=== PATIENT | male | born 1945 | race Caucasian/White ===

== ENCOUNTER 2018-08-25 15:46 | Emergency (ER) | payer OTHER, MEDICARE ==
[~2018-08-25] VITALS: Ht 188 cm; Wt 104.5 kg
[2018-08-25 16:22] LABS: BASO % 0.4 % (0.0-1.0); EOS # 0.1 10^3/uL (0.0-0.50); EOS % 1.1 % (0.0-3.0); HEMATOCRIT 31.7 % (42.0-52.0); HEMOGLOBIN 10.2 g/dl (13.5-17.5); LYMPH # 1.1 10^3/uL (1.5-4.5); LYMPH % 11.3 % (24.0-44.0); MEAN CORPUSCULAR HEMOGLOBIN 29.2 pg (27.0-33.0); MEAN CORPUSCULAR HGB CONC 32.2 g/dl (32.0-36.5); MEAN CORPUSCULAR VOLUME 90.8 fl (80.0-96.0); MONO # 0.7 10^3/uL (0.0-0.8); MONO % 6.9 % (0.0-5.0); NEUTROPHILS # 7.6 10^3/uL (1.8-7.7); NEUTROPHILS % 79.3 % (36.0-66.0); PLATELET COUNT, AUTOMATED 238 10^3/uL (150-450); RED BLOOD COUNT 3.49 10^6/uL (4.30-6.10); WHITE BLOOD COUNT 9.6 10^3/uL (4.0-10.0)
[2018-08-25 16:32] LABS: INR 1.03; PROTHROMBIN TIME 13.2 SECONDS (11.8-14.0)
[2018-08-25 16:33] LABS: PARTIAL THROMBOPLASTIN TIME 28.1 SECONDS (25.0-38.4)
[2018-08-25 16:54] LABS: ALBUMIN 3.7 GM/DL (3.2-5.2); ALT/SGPT 28 U/L (12-78); BILIRUBIN,DIRECT 0.1 MG/DL (0.0-0.2); BILIRUBIN,TOTAL 0.3 MG/DL (0.2-1.0); BLOOD UREA NITROGEN 76 MG/DL (7-18); CALCIUM LEVEL 8.8 MG/DL (8.8-10.2); CARBON DIOXIDE LEVEL 15 MEQ/L (21-32); CHLORIDE LEVEL 112 MEQ/L (98-107); CPK CREATINE PHOSPHOKINASE 144 U/L (39-308); CREATININE FOR GFR 2.97 MG/DL (0.70-1.30); GLOMERULAR FILTRATION RATE 22.1 (>42); GLUCOSE, FASTING 144 MG/DL (70-100); LIPASE 1556 U/L (73-393); MB/CK RELATIVE INDEX 3.47 (< OR =4); POTASSIUM SERUM 5.8 MEQ/L (3.5-5.1); SODIUM LEVEL 137 MEQ/L (136-145); TOTAL PROTEIN 7.3 GM/DL (6.4-8.2); TROPONIN I < 0.02 NG/ML (< 0.10)
[2018-08-25] MEDS ORDERED: NS 1,000 ML IV ONE (17:15)
[2018-08-25] MEDS ORDERED: PATIROMER SORBITEX CALCIUM 8.4 GM POWDER PACKET (VELTASSA) PO ONE (17:30)
[2018-08-25] MEDS ORDERED: CALCIUM GLUCONATE 1,000 MG in D5W MINI-BAG PLUS 100 ML IV ONE (17:30)
--- NOTE | 2018-08-25 17:53 | REP ---
HISTORY: Acute renal failure and possible pancreatitis. COMPARISON: None. The examination was performed without intravenous or oral bowel preparatory contrast. This limits the exam. In the left kidney inferior pole region, there is a large calculus which is not causing obstructive phenomenon. This measures approximately 1.3 cm. There are no ureteroliths. There is no hydronephrosis or hydroureter. There are multiple bilateral renal cysts, some somewhat hyperdense. Limited evaluation of the pancreas and adrenal glands show no abnormalities. The liver, gallbladder, and spleen are within normal limits. There is no free fluid or free air in the abdomen. The abdominal aorta and periaortic regions are within normal limits. There is calcific atherosclerotic change. The bowel loops and their mesenteries are within normal limits. There has been previous partial colectomy. There is no intraabdominal mass or adenopathy. CT PELVIS: There is a large amount of content in the rectosigmoid vault. There is no free fluid or free air. There is no mass or adenopathy. Bone window technique throughout the exam shows the osseous structures to be within normal limits for the patient's age of 73 years. The lung bases are clear. IMPRESSION: 1. There is a nonobstructing left renal calculus. 2. Multiple bilateral renal cysts, but difficult to completely evaluate without intravenous contrast. Consider followup. 3. No evidence of acute intraabdominal or intrapelvic disease with other findings as described above. Electronically Signed by Dayton Mitchell DO 08/25/2018 05:54 P
[2018-08-25] MEDS ORDERED: PIOG1TAB37 PO (18:23)
[2018-08-25] MEDS ORDERED: ASPI81TA85 PO (18:23)
[2018-08-25] MEDS ORDERED: GLYB5TA PO (18:23)
[2018-08-25] MEDS ORDERED: VITMTA PO (18:23)
[2018-08-25] MEDS ORDERED: FISH1000 PO (18:23)
[2018-08-25] MEDS ORDERED: AMLO10TA5 PO (18:23)
[2018-08-25] MEDS ORDERED: LISI40TA PO (18:23)
[2018-08-25] MEDS ORDERED: SIMV40TA2 PO (18:23)
[2018-08-25] MEDS ORDERED: METF500T4 PO (18:23)
[2018-08-25] MEDS ORDERED: VITAD1000T PO (18:23)
[2018-08-25 19:04] LABS: APPEARANCE, URINE HAZY (CLEAR); BACTERIA, URINE AUTO 1+ (NEGATIVE); BILIRUBIN, URINE AUTO NEGATIVE (NEGATIVE); BLOOD, URINE BLOOD NEGATIVE (NEGATIVE); COLOR, URINE YELLOW (YELLOW); GLUCOSE, URINE (UA) AUTO NEGATIVE (NEGATIVE); KETONE, URINE AUTO NEGATIVE (NEGATIVE); LEUKOCYTE ESTERASE, URINE AUTO NEGATIVE (NEGATIVE); MUCUS, URINE SMALL (NEGATIVE); NITRITE, URINE AUTO NEGATIVE (NEGATIVE); PROTEIN, URINE AUTO 2+ mg/dL (NEGATIVE); RBC, URINE AUTO 1 /HPF (0-3); SPECIFIC GRAVITY URINE AUTO 1.012 (1.002-1.035); SQUAMOUS EPITHELIAL CELL UR AU 0 /HPF (0-6); UROBILINOGEN, URINE AUTO 0.2 mg/dL (0.0-2.0); WBC, URINE AUTO 1 /HPF (0-3)
[2018-08-25 19:17] LABS: SODIUM,RANDOM URINE 41 MEQ/L
[2018-08-25 20:00] VITALS: BP 115/56
[2018-08-25] MEDS ORDERED: HYDR-3910 PO (20:56)
--- NOTE | 2018-08-27 06:46 | ECGEPIP ---
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
--- NOTE | 2018-08-28 13:42 | ED PDOC ---
Post-Departure Follow[facility]Up [facility] faxed formal report of ct abd/p for fu Avtar Harding MD Aug 28, 2018 13:42
== END 2018-08-25 21:06 | disposition home or self-care (01) ==
LOC: M ED 15:46
DX: N17.9 Acute kidney failure, unspecified (principal); E87.5 Hyperkalemia; R74.8 Abnormal levels of other serum enzymes; E11.9 Type 2 diabetes mellitus without complications; E78.00 Pure hypercholesterolemia, unspecified; Z79.899 Other long term (current) drug therapy; Z79.82 Long term (current) use of aspirin
CPT/HCPCS: 36415; 74176; 80047; 80048; 80076; 81001; 82550; 82553; 82570; 83690; 84300; 84484; 85025; 85610; 85730; 93005; 93041; 96365; 96366; 99285; J0610

== ENCOUNTER 2019-08-21 15:34 | Emergency (ER) | payer OTHER, MEDICARE ==
[~2019-08-21] VITALS: Ht 188 cm; Wt 111.0 kg
[~2019-08-21 15:34] MED LIST: AMLO10TA5 PO; ASPI81TA85 PO; CHOL100029 PO; FISH1000 PO; GLYB5TA PO; HYDR-3910 PO; LISI40TA PO; METF-838 PO; PIOG1TAB37 PO; SIMV40TA20 PO; VITMTA PO
[2019-08-21] MEDS ORDERED: CHLO125TA PO (15:45)
[2019-08-21] MEDS ORDERED: FURO20TA2 (15:45)
[2019-08-21] MEDS ORDERED: LANTINJ4 SC (15:45)
[2019-08-21 16:21] LABS: BASO % 0.4 % (0.0-1.0); EOS # 0.1 10^3/uL (0.0-0.5); EOS % 0.7 % (0.0-3.0); HEMATOCRIT 32.7 % (42.0-52.0); LYMPH # 1.2 10^3/uL (1.5-5.0); LYMPH % 12.4 % (24.0-44.0); MEAN CORPUSCULAR HEMOGLOBIN 29.9 pg (27.0-33.0); MEAN CORPUSCULAR HGB CONC 33.6 g/dl (32.0-36.5); MEAN CORPUSCULAR VOLUME 88.9 fl (80.0-96.0); MONO # 0.7 10^3/uL (0.0-0.8); MONO % 6.8 % (0.0-5.0); NEUTROPHILS # 7.7 10^3/uL (1.5-8.5); PLATELET COUNT, AUTOMATED 178 10^3/uL (150-450); RED BLOOD COUNT 3.68 10^6/uL (4.30-6.10); WHITE BLOOD COUNT 9.7 10^3/uL (4.0-10.0)
[2019-08-21 16:41] LABS: ERYTHROCYTE SEDIMENTATION RATE 108 mm/hr (0-20)
[2019-08-21 16:44] LABS: C REACTIVE PROTEIN QUANTITATIV 2.57 MG/DL (0.00-0.30); CALCIUM LEVEL 8.5 MG/DL (8.8-10.2); CREATININE FOR GFR 2.5 MG/DL (0.70-1.30); GLOMERULAR FILTRATION RATE 26.9 (>42)
[2019-08-21] MEDS ORDERED: NS 500 ML IV ONE (17:30)
[2019-08-21 17:54] VITALS: BP 170/80
== END 2019-08-21 18:41 | disposition home or self-care (01) ==
LOC: M ED 15:34
DX: I87.2 Venous insufficiency (chronic) (peripheral) (principal); N17.9 Acute kidney failure, unspecified; E11.9 Type 2 diabetes mellitus without complications; I10 Essential (primary) hypertension; E78.5 Hyperlipidemia, unspecified; I73.9 Peripheral vascular disease, unspecified; Z87.891 Personal history of nicotine dependence; Z79.4 Long term (current) use of insulin; Z79.899 Other long term (current) drug therapy

== ENCOUNTER 2019-08-29 19:27 | Emergency (ER) | payer MEDICARE, OTHER ==
[~2019-08-29] VITALS: Ht 188 cm; Wt 111.3 kg
[~2019-08-29 19:27] MED LIST changes: -AMLO10TA5 PO; +AMLO1TAB25 PO; -ASPI81TA85 PO; +ASPI81TA86 PO; +CHLO125TA PO; +FURO20TA2; +LANTINJ4 SC
[2019-08-29 20:10] LABS: BASO % 0.6 % (0.0-1.0); EOS # 0.1 10^3/uL (0.0-0.5); EOS % 1.1 % (0.0-3.0); HEMOGLOBIN 10.5 g/dl (13.5-17.5); LYMPH % 13.7 % (24.0-44.0); MEAN CORPUSCULAR HEMOGLOBIN 29.5 pg (27.0-33.0); MEAN CORPUSCULAR HGB CONC 32.8 g/dl (32.0-36.5); MEAN CORPUSCULAR VOLUME 89.9 fl (80.0-96.0); MONO # 0.3 10^3/uL (0.0-0.8); MONO % 4.7 % (0.0-5.0); NEUTROPHILS # 5.6 10^3/uL (1.5-8.5); NEUTROPHILS % 78.8 % (36.0-66.0); PLATELET COUNT, AUTOMATED 207 10^3/uL (150-450); RED BLOOD COUNT 3.56 10^6/uL (4.30-6.10); WHITE BLOOD COUNT 7.1 10^3/uL (4.0-10.0)
[2019-08-29 20:49] LABS: ERYTHROCYTE SEDIMENTATION RATE 80 mm/hr (0-20)
[2019-08-29] MEDS ORDERED: cefTRIAXone SOD 1 GM in D5W MINI-BAG PLUS 50 ML IV ONE (22:15)
[2019-08-29] MEDS ORDERED: CLEO300C2 PO (22:38)
[2019-08-29 23:01] VITALS: BP 133/67
--- NOTE | 2019-08-30 08:59 | REP ---
REASON: Foot wound. Degenerative changes are seen throughout the foot. There are vascular calcifications present. Tiny plantar and retrocalcaneal heel spurs are present. There is a tiny radiodensity in the soft tissues at the level of the midportion of the proximal phalanx of the 5th digit medially. The etiology of this is uncertain. There is no acute fracture or evidence of a destructive osseous lesion. IMPRESSION: Findings as described above. Plain radiography cannot rule out acute osteomyelitis. MRI is recommended. Electronically Signed by Dayton Mitchell DO 08/30/2019 01:42 P
== END 2019-08-29 23:02 | disposition home or self-care (01) ==
LOC: M ED 19:27
DX: L03.116 Cellulitis of left lower limb (principal); E11.9 Type 2 diabetes mellitus without complications; I10 Essential (primary) hypertension; E78.5 Hyperlipidemia, unspecified; M77.32 Calcaneal spur, left foot; I70.202 Unspecified atherosclerosis of native arteries of extremities, left leg; R93.6 Abnormal findings on diagnostic imaging of limbs; Z79.4 Long term (current) use of insulin; Z79.899 Other long term (current) drug therapy
CPT/HCPCS: 73630; 80047; 83605; 85025; 85652; 86140; 87040; 87070; 87077; 87186; 96365; 99284; J0696

== ENCOUNTER 2019-09-03 16:57 | Emergency (ER) | payer OTHER, MEDICARE ==
[~2019-09-03] VITALS: Ht 188 cm; Wt 113.5 kg
[2019-09-03 16:57] VITALS: BP 178/81
[~2019-09-03 16:57] MED LIST changes: +AMLO10TA5 PO; -AMLO1TAB25 PO; +ASPI81TA85 PO; -ASPI81TA86 PO; +CLEO300C2 PO
[2019-09-03] MEDS ORDERED: BACT800T5 PO (17:15)
== END 2019-09-03 17:30 | disposition home or self-care (01) ==
LOC: M ED 16:57
DX: L03.116 Cellulitis of left lower limb (principal); E11.9 Type 2 diabetes mellitus without complications; I10 Essential (primary) hypertension; E78.5 Hyperlipidemia, unspecified; Z79.4 Long term (current) use of insulin; Z79.899 Other long term (current) drug therapy